=== PATIENT | male | born 1965 | race Caucasian/White ===

== ENCOUNTER 2024-11-19 09:39 | Outpatient (AMB) | payer OTHER, SELFPAY ==
--- NOTE | 2024-11-19 09:40 | MHC.OFFVIS ---
Intake Visit Reasons: Urothelial carcinoma of bladder Intake Note: Patient is present for UROTHELIAL,CARCINOMA OF BLADDER Urology Medication:NONE Antibiotic Allergy:NONE Blood Thinner:NONE Career Technical Education Instructor Required: No Allergies No Known Allergies Allergy (Verified 11/19/24 09:41) HPI Comments Details: Alessandro is a pleasant male. He is a patient of . He is seen for the following urologic conditions - superficial bladder cancer Requires check cystoscopy To be performed in December Has some degree of anxiety regarding office cystoscopy. Will give low-dose Valium. Superficial bladder cancer - low-grade August 2024 Initial diagnosis with TUR[facility] Reported as superficial low-grade solitary lesion Copy of pathology from [facility] to be obtained Review of Systems Const Denies chills and Denies fever(s) Card Reports no additional complaints and Denies syncope Resp Denies cough GI Denies abdominal pain and Denies heartburn Reports as per HPI and Denies change in libido Neuro Denies syncope Psych Denies change in libido Endo Denies change in libido Physical Exam Const General: cooperative, healthy appearing, comfortable and no acute distress Orientation/consciousness: patient oriented x3 HEENT Face and sinus: Yes normal facial exam Mouth: moist mucous membranes Neck Neck: Yes normal visual inspection, Yes full ROM and Yes trachea midline Chest Chest palpation & inspection: normal inspection of the chest Resp Effort & Inspection: normal respiratory effort, able to speak in complete sentences and no respiratory distress GI Inspection: Yes normal to inspection Back/Spine/Pelvis Cervical Spine: normal cervical lordosis Thoracic/Lumbar Spine: thoracic and lumbar spine normal to inspection Skin General skin exam: no rashes or lesions noted Neuro General: patient oriented x3, gait normal, tone normal and moves all extremities Extrem General: Yes normal to inspection and Yes capillary refill normal Results AMB Urinalysis, Automated UA Leukoctes 0 Miranda/uL Last Edit by KATHERINE Escobar on 11/19/24 09:56 UA Nitrite Negative Last Edit by KATHERINE Escobar on 11/19/24 09:56 UA Urobilinogen 0.2 mg/dL Last Edit by KATHERINE Escobar on 11/19/24 09:56 UA Protein 15 mg/dL Last Edit by KATHERINE Escobar on 11/19/24 09:56 UA pH 6.0 Last Edit by KATHERINE Escobar on 11/19/24 09:56 UA Blood 0 Eulogio/uL Last Edit by KATHERINE Escobar on 11/19/24 09:56 UA Specific [place] 1.015 Last Edit by KATHERINE Escobar on 11/19/24 09:56 UA Ketone Negative Last Edit by KATHERINE Escobar on 11/19/24 09:56 UA Bilirubin 0 mg/dL Last Edit by KATHERINE Escobar on 11/19/24 09:56 UA Glucose 0 mg/dL Last Edit by KATHERINE Escobar on 11/19/24 09:56 Results Reviewed Results Reviewed: Laboratory Last Values Urine pH (Auto) 6.0 11/19/24 09:55 Specific [place] (Auto) 1.015 11/19/24 09:55 Urine Protein (Auto) 15 mg/dL 11/19/24 09:55 Glucose (UA)(Auto) 0 mg/dL 11/19/24 09:55 Urine Ketones (Auto) Negative 11/19/24 09:55 Urine Blood (Auto) 0 Eulogio/uL 11/19/24 09:55 Urine Nitrite (Auto) Negative 11/19/24 09:55 Urine Bilirubin (Auto) 0 mg/dL 11/19/24 09:55 Urine Urobilinogen (Auto) 0.2 mg/dL 11/19/24 09:55 Leukocyte Esterase (Auto) 0 Miranda/uL 11/19/24 09:55 Assessment & Plan Assessment & Plan (1) Bladder cancer: Code(s): C67.9 - Malignant neoplasm of bladder, unspecified Category: Medical Plan Plan office cysto Orders: Orders AMB Urinalysis Automated 11/19/24 Z13.9 - Encounter for screening, unspecified Urine Cytology 11/19/24 N39.0 - Urinary tract infection, site not specified Medications: New diazepam Take medication after arrival at office 2 mg PO BID PRN 2 tabs 0RF anxiety 1 day C67.9 - Malignant neoplasm of bladder, unspecified, R45.89 - Other symptoms and signs involving emotional state Patient Instructions: This note is constructed using voice recognition software. While every effort has been made to ensure accuracy software systems architect errors may have been included. Imaging studies, laboratory and physical exam results were discussed and reviewed in detail. No major barriers to patient understanding were identified. An opportunity to ask questions regarding the treatment plan was provided. All questions were answered. The patient expressed understanding and agreement with the above treatment plan. The patient is aware they should contact our office by phone for worsening of their current condition or the appearance of new urologic symptoms. Compliance is encouraged with any medications and followup testing that is ordered. It is a privilege to participate in the urologic care of your patient. If you have any questions or concerns regarding treatment for the above conditions, or other urologic issues, please do not hesitate to contact me. The office telephone contact is [phone]. Sincerely, Dr Fan Park MD, [facility] - Urology Compassionate Specialist Care for the Genitourinary System Coding Level of Care Code New Pt Level 4 (99003) Diagnoses Bladder cancer C67.9
== END 2024-11-19 10:28 | disposition home or self-care (01) ==
LOC: HO.HUSH 09:39
PROVIDERS: PCP Family Medicine; Visit Provider Urology
DX: Z13.9 Encounter for screening, unspecified (principal)
CPT/HCPCS: 99204

== ENCOUNTER 2024-11-19 09:39 | Outpatient (REF) | payer OTHER, SELFPAY | END 2024-11-19 09:40 | disposition home or self-care (01) | LOC: HO.LAB 09:39 | PROVIDERS: PCP Family Medicine; Visit Provider Urology | DX: N39.0 Urinary tract infection, site not specified (principal) | CPT/HCPCS: 81003; 88112 ==

== ENCOUNTER 2025-01-27 08:40 | Outpatient (AMB) | payer OTHER, SELFPAY ==
--- NOTE | 2025-01-27 08:59 | MHC.OFFVIS ---
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 He is a patient of . He is seen for the following urologic conditions - superficial bladder cancer Office cystoscopy Has some degree of anxiety regarding office cystoscopy. Will give low-dose Valium. Superficial bladder cancer - low-grade August 2024 Initial diagnosis with [facility] Reported as superficial low-grade solitary lesion Cytology - 12/12 NAD Review of Systems Const Denies chills and Denies fever(s) Card Reports no additional complaints and Denies syncope Resp Denies cough GI Denies abdominal pain and Denies heartburn Reports as per HPI and Denies change in libido Neuro Denies syncope Psych Denies change in libido Endo Denies change in libido Physical Exam Const General: cooperative, healthy appearing, comfortable and no acute distress Orientation/consciousness: patient oriented x3 HEENT Face and sinus: Yes normal facial exam Mouth: moist mucous membranes Neck Neck: Yes normal visual inspection, Yes full ROM and Yes trachea midline Chest Chest palpation & inspection: normal inspection of the chest Resp Effort & Inspection: normal respiratory effort, able to speak in complete sentences and no respiratory distress GI Inspection: Yes normal to inspection Back/Spine/Pelvis Cervical Spine: normal cervical lordosis Thoracic/Lumbar Spine: thoracic and lumbar spine normal to inspection Skin General skin exam: no rashes or lesions noted Neuro General: patient oriented x3, gait normal, tone normal and moves all extremities Extrem General: Yes normal to inspection and Yes capillary refill normal Office Procedures Cystoscopy Consent Discussed risk and benefit or proposed procedure with the patient. Information consent for procedure given to the patient. Discussed technical aspects, risks, benefits and alternatives in full. Addressed all of the patient's questions and concerns regarding the procedure. The patient demonstrated knowledge and understanding. They wish to proceed with this procedure. Preparation The patient was prepped in the usual manner. A knobber was present and in the room. Genitalia was prepped with betadine solution in a sterile manner. Lidocaine Jelly 2% was placed into the urethra and 16Fr flexible Olympus cystoscope was inserted into the meatus after adequate lubrication. Procedure Cystoscopy performed using a disposable Quintiq digital 16 [place] cystoscope. Meatus circumcised Urethra anterior and posterior urethra normal Prostatic Urethra unremarkable - question of small area irritation left bladder neck Bladder examination with retroflexion of cystoscope Bladder Orifices normal shape and position Bladder Capacity Normal Trabeculations Grade 0 Cellule Formation None Diverticulum Formation None Mucosal Erythema None - trigonitis Bladder Tumor None [id number] DISPOSABLE SCOPE URO-G FLEXIBLE SCOPE Procedure code (CPT) selection complete Office Meds lidocaine HCl 2 % mucosal jelly in applicator Performing Provider: Fan Park MD Performing Location: [facility] Administered by: Nancy Hemphill RN on 01/27/25 09:28 Dose Route Admin Location Dispensed Lot Number Expiration Date NDC [employer] Liaison Officer 10 mL intra-urethral 10 mL nitrofurantoin monohydrate/macrocrystals 100 mg capsule Performing Provider: Fan Park MD Performing Location: [facility] Administered by: Nancy Hemphill RN on 01/27/25 09:28 Dose Route Admin Location Dispensed Lot Number Expiration Date ND [employer]ia[employer] 100 mg PO 1 cap Results AMB Urinalysis, Automated UA Leukoctes 0 Miranda/uL Last Edit by KATHERINE Hall on 01/27/25 09:13 UA Nitrite Negative Last Edit by KATHERINE Hall on 01/27/25 09:13 UA Urobilinogen 0.2 mg/dL Last Edit by KATHERINE Hall on 01/27/25 09:13 UA Protein 0 mg/dL Last Edit by KATHERINE Hall on 01/27/25 09:13 UA pH 6.0 Last Edit by KATHERINE Hall on 01/27/25 09:13 UA Blood 0 Eulogio/uL Last Edit by KATHERINE Hall on 01/27/25 09:13 UA Specific [place] 1.015 Last Edit by KATHERINE Hall on 01/27/25 09:13 UA Ketone Negative Last Edit by KATHERINE Hall on 01/27/25 09:13 UA Bilirubin 0 mg/dL Last Edit by KATHERINE Hall on 01/27/25 09:13 UA Glucose 0 mg/dL Last Edit by KATHERINE Hall on 01/27/25 09:13 Results Reviewed Results Reviewed: Laboratory Last Values Urine pH (Auto) 6.0 01/27/25 09:12 Specific [place] (Auto) 1.015 01/27/25 09:12 Urine Protein (Auto) 0 mg/dL 01/27/25 09:12 Glucose (UA)(Auto) 0 mg/dL 01/27/25 09:12 Urine Ketones (Auto) Negative 01/27/25 09:12 Urine Blood (Auto) 0 Eulogio/uL 01/27/25 09:12 Urine Nitrite (Auto) Negative 01/27/25 09:12 Urine Bilirubin (Auto) 0 mg/dL 01/27/25 09:12 Urine Urobilinogen (Auto) 0.2 mg/dL 01/27/25 09:12 Leukocyte Esterase (Auto) 0 Miranda/uL 01/27/25 09:12 Assessment & Plan Assessment & Plan (1) Bladder cancer: Code(s): C67.9 - Malignant neoplasm of bladder, unspecified Category: Medical Plan Six-month follow-up cystoscopy Orders: Orders AMB Urinalysis Automated Today Z13.9 - Encounter for screening, unspecified AMB Cystoscopy Today C67.9 - Malignant neoplasm of bladder, unspecified Patient Instructions: This note is constructed using voice recognition software. While every effort has been made to ensure accuracy artillery or naval gunfire observer errors may have been included. Imaging studies, laboratory and physical exam results were discussed and reviewed in detail. No major barriers to patient understanding were identified. An opportunity to ask questions regarding the treatment plan was provided. All questions were answered. The patient expressed understanding and agreement with the above treatment plan. The patient is aware they should contact our office by phone for worsening of their current condition or the appearance of new urologic symptoms. Compliance is encouraged with any medications and followup testing that is ordered. It is a privilege to participate in the urologic care of your patient. If you have any questions or concerns regarding treatment for the above conditions, or other urologic issues, please do not hesitate to contact me. The office telephone contact is [phone]. Sincerely, Dr Fan Park MD, [facility] - Urology Compassionate Specialist Care for the Genitourinary System Coding Level of Care Code Est Pt Level 3 (56350) Complex EM visit Add On G2211 Diagnoses Bladder cancer C67.9 CPT Codes Cystoscopy - CPT: 44758-[id number] ([id number])
--- OUTSIDE RECORDS SUMMARY | 2025-01-27 09:49 | XMS_ITS | Clinical Summary ---
Author Organization [facility] Address [address] [place] [id number] Phone Care Team Providers Care Associate Software Engineer Name Role Phone Sergio Dyer DO Primary Care Provider Allergies No known active allergies Medications omega 1-qvd-nve-fish oil 1,000 mg (120 mg-180 mg) Cap Take 1 capsule by mouth daily. Active acetaminophen (TYLENOL) 325 mg tablet Take 2 tablets (650 mg total) by mouth every 4 (four) hours as needed for pain (specific location in comments). 24 tablet 09/03/2024 Active lidocaine 4 % Place 1 patch onto the skin daily. 10 patch 09/04/2024 Active Active Problems Problem Noted Date Diagnosed Date DDD (degenerative disc disease), lumbar 09/12/19 25 Assessment & Plan (09/11/2024 10:20 AM EDT): Alessandro has low back pain-ongoing. The pain radiates down into the legs at times. I referred him to Dr. Judge for a consult and I gave him some exercises the front to start on. I informed him to call if there are any other issues or concerns if this gets worse. Follow-up in 2 months. He understands and agrees. Urothelial carcinoma of bladder 09/03/2024 Assessment & Plan (11/10/2024 9:34 AM EDT): Alessandro has an appointment with a new urologist at [place] for the bladder mass. He currently denies any dysuria or blood in the urine but is having more urgency at times. He did not have a bladder scan yet but will have this worked up through [place]. I informed him to call if any other issues or concerns. He understands and agrees. Assessment & Plan (09/11/2024 10:19 AM EDT): Alessandro presents for follow-up regarding his urothelial carcinoma of the bladder. He was admitted to [facility] on 09/01/[address] Reed who performed a cystoscopy and biopsy/stenting. He was discharged on 09/03/2024. The catheter and stent were removed this past Sunday-09/08/2024. I reviewed the pathology report with him and I advised him to follow-up with his urologist-he will see the urologist on 09/19/2024. Currently no dysuria and no hematuria. This is reassuring. He will call if there are any other issues or concerns. He understands and agrees. Elevated white blood cell count 09/02/2024 Overview (09/02/2024): Pt noted to have Leukocytosis at 16.88 on morning labs. Pt afebrile. EKG taken this morning. Trops and procal added to morning labs -likely d/t inflammatory response Bladder neoplasm of uncertain malignant potentia l 09/01/2024 Assessment & Plan (11/10/2024 9:35 AM EDT): Alessandro has an appointment with a new urologist in [place]. Assessment & Plan (09/03/2024 10:26 AM EDT): Patient is a 59-year-old male with a past medical history positive for arthritis and a recent ED visit for sudden painless hematuria (07/2024). Patient is day #1 s/p planned transurethral resection of bladder tumor (TURBT). A right ureteral stent and Jeffrey was placed. -He was initially admitted for postanesthesia observation due to lack of help at home. DC was delayed d/t concerns for ETOH withdrawal -Sufficient jeffrey output. Draining clear and pink, no clots Plan: -DC Pt with jeffrey to gravity -Per urology note Pt is to follow-up outpatient in 1 week for office cystoscopy and removal of Jeffrey as well as removal of right ureteral stent Assessment & Plan (09/02/2024 10:43 AM EDT): Patient is a 59-year-old male with a past medical history positive for arthritis and a recent ED visit for sudden painless hematuria (07/2024). Patient presented today for planned transurethral resection of bladder tumor. -In the OR a right ureteral stent and Jeffrey was placed. -He was admitted for postanesthesia observation due to lack of help at home -Jeffrey output more than 800mL since placement. Urine now clear and pink -Pt with new leukocytosis on morning labs. He is afebrile. This is likely d/t inflammatory response. Pt was ordered Ancef pre and post op, he has one more dose to go Plan: -DC Pt with jeffrey to gravity -Per urology note Pt is to follow-up outpatient in 1 week for office cystoscopy and removal of Jeffrey as well as removal of right ureteral stent Assessment & Plan (09/01/2024 2:35 PM EDT): Patient is a 59-year-old male with a past medical history positive for arthritis and a recent ED visit for sudden painless hematuria (07/2024). Patient presented today for planned transurethral resection of bladder tumor. -In the or a right ureteral stent and Jeffrey was placed. -He is being admitted for postanesthesia observation due to lack of help at home -Per urology note plan is for follow-up outpatient in 1 week for removal of Jeffrey and right ureteral stent as well as office cystoscopy -Labs: CBC, CMP -cont IVF -jeffrey to gravity Disorder of ureter 09/01/2024 Bladder tumor 09/01/2024 Bradycardia 09/01/2024 Assessment & Plan (09/03/2024 10:26 AM EDT): -pt was noted to be bradycardic pre-op in 50s. He was asymptomatic post-op. Denies known cardiac hx and denies known family cardiac hx - Today he denies dizziness and nausea -pt hypertensive with SBP 140s-160s. Troponin (-) x2, procal WNL. Concern for acute cardiac even is low at this time -EKG reviewed. T-wave inversions in leads V1, V3 and II. No acute ischemic changes. No previous EKG for comparison -No cardiac events on monitor. Heart rate 50s to 80s. Sinus bradycardia to normal sinus rhythm Plan: -OutPt Cardiology referral ordered Assessment & Plan (09/02/2024 10:43 AM EDT): -pt was noted to be bradycardic pre-op in 50s. He was asymptomatic post-op. Denies known cardiac hx and denies known family cardiac hx -this morning he reports occasional dizziness with standing that he associates with abt administration -pt hypertensive. Troponin (-) x2, procal WNL. Concern for acute cardiac even is low at this time -EKG reviewed. T-wave inversions in leads V1, V3 and II. No acute ischemic changes. No previous EKG for comparison -No cardiac evens on monitor. Now sinus rhythm Plan: -OutPt Cardiology referral ordered Assessment & Plan (09/01/2024 2:11 PM EDT): -pt asymptomatic. Denies hx -May be d/t anesthesia. Not likely d/t hypovolemia -manager express -EKG -IVF -Vitals Hypertension 09/01/2024 Assessment & Plan (11/10/2024 9:34 AM EDT): Alessandro presents for blood pressure check. Currently within normal limits and stable blood pressure today in the office. He is not taking a blood pressure medication. Assessment & Plan (09/11/2024 10:14 AM EDT): Normal B/P without medication. He is undergoing lifestyle improvement. Assessment & Plan (09/03/2024 10:26 AM EDT): -Pt with no hx or family medical hx of HTN. Noted to be slightly hypertensive pre-op with SBP 140s -SBP 140s-160s, -CIWA 0-1 -Currently daily ETOH Drinker. He reports about #3 beers or glasses of wine daily, last drink was the night before surgery/admission (approx #3 days ago) -recent EKG with T wave abnormalities -Trop (-) x2. procal WNL. Concern for acute cardiac even is low at this time Plan: -OutPt Cardiology referral ordered Assessment & Plan (09/02/2024 10:43 AM EDT): -Pt with no hx or family medical hx of HTN. Noted to be slightly hypertensive pre-op with SBP 140s -Overnight SBP as high as 180s, his CIWA around that time was 12. He was given ativan with positive effect. Last SBP in 160s -Pt reports daily ETOH use. He reports about #3 beers or glasses of wine daily, last drink was the night before surgery/admission (approx #2 days ago) -EKG this morning with T wave abnormalities -Trop (-) x2. procal WNL. Concern for acute cardiac even is low at this time Plan: -OutPt Cardiology referral ordered Assessment & Plan (09/01/2024 2:11 PM EDT): Pt with no hx of HTN -Pt reports daily ETOH use. He reports about #3 beers or glasses of wine daily, last drink last night -IVF ordered -CIWA -Vitals Alcohol use 09/01/2024 Assessment & Plan (11/10/2024 9:34 AM EDT): Alessandro decrease his alcohol intake and he notes that he has been feeling better. I congratulated him on this. Assessment & Plan (09/03/2024 10:26 AM EDT): Patient reported drinking about #3 beers or glasses of wine daily. Last drink the night before surgery/admission (approx #3 days ago) -CIWA 0-1. -cont to be hypertensive with SBP 140s-160s. Plan: -Pt again counseled on ETOH cessation and the importance of outpatient cardiology follow-up -cont folate, MTV, thiamine Assessment & Plan (09/02/2024 10:43 AM EDT): Patient reported drinking about #3 beers or glasses of wine daily. Last drink the night before surgery/admission (approx #2 days ago) -Overnight CIWA score as high as 12. He was also noted to be hypertensive with SBP in 180s. He was given ativan 1mg x1 Plan: -Pt counseled on ETOH cessation Assessment & Plan (09/01/2024 2:11 PM EDT): Patient reports drinking about #3 beers or glasses of wine daily -CIWA Arthritis 06/06/2024 Assessment & Plan (06/06/2024 4:03 PM EST): Alessandro has arthritis in his shoulders and hands-I filled out FMLA paperwork today. I scanned this into his chart. He will call if there are any other issues or concerns. He understands and agrees. Shoulder pain, bilateral 06/06/2024 Assessment & Plan (06/06/2024 4:04 PM EST): Chronic pain in the xhxunkhtq-knoudauzt-B filled out paperwork today for this. I gave him exercises for this at the front office specialist. Pain in both hands 06/06/2024 Assessment & Plan (06/06/2024 4:04 PM EST): Chronic pain in the syrqu-emrimzzia-D filled out paperwork today for this. I gave him exercises at the front office specialist for this. Encounter for completion of form with patient Assessment & Plan (11/10/2024 9:34 AM EDT): I filled out FMLA paperwork today in the office for-this was scanned into the chart. He was appreciative. Assessment & Plan (06/06/2024 4:04 PM EST): I filled out FMLA paperwork for Alessandro today. This will be scanned into his chart. Bilateral osteoarthritis of finger 05/24/2023 Overview (10/17/2023): DIPs; no psoriasis hx Assessment & Plan (10/17/2023 4:50 PM EDT): There is no specific historical, physical, radiographic, or serologic e/o underlying or co-morbid rheumatoid or other inflammatory arthritis. Patient is currently minimally symptomatic despite degree of DIP OA. We discussed typical prognosis and tx options for finger OA, including continued oral NSAIDs as needed, topical analgesics, and hot paraffin baths. He is aware that there is nothing proven to prevent disease progression but that typically people will ultimately plateau. He will contact me if sxs progress in severity to the point that he requires further rheum-specific guidance. Assessment & Plan (05/24/2023 4:13 PM EST): Alessandro has worsening arthritic joints of the hands-specifically DIP joints-there deformed. He is taking his hcznlvmxee-tbci-qyo-counter as needed. I offered sulindac versus diclofenac but he declines this. He will call if he would like a trial of this medication. I ordered labs today to rule out rheumatoid arthritis and I put a referral to rheumatology for consult. To note-rheumatoid arthritis runs in his family. He was appreciative. He will call if there are any other issues or concerns. He understands and agrees. Screening for lung cancer 05/23/2022 Assessment & Plan (05/23/2022 4:51 PM EST): Alessandro is due for a low-dose CT scan. I ordered this today and he will get it from her office. I will update him with results. He understands and agrees. Screening for prostate cancer 05/18/2021 Assessment & Plan (05/26/2024 11:50 AM EST): Alessandro is due for blood work-he will get this done and I will update him with the result. Assessment & Plan (05/24/2023 4:14 PM EST): Alessandro is due for blood work-he will get this done and I will update him with the result. Assessment & Plan (05/18/2021 4:27 PM EST): Alessandro is due for a PSA and he will get this done-I will update him with the results. Fingernail abnormalities 05/12/2020 Finger mass, right 05/12/2020 Assessment & Plan (05/18/2021 4:26 PM EST): Alessandro rodriguez have issues with ganglion cyst on his hands. I referred him back to orthopedics in [place] for consult. He was appreciative. I informed him that he will get a phone call for this. Assessment & Plan (05/12/2020 5:13 PM EST): Referral to Dr. Lombardi for a consult regarding his right ring finger. Suspected ganglion cyst. He will call for the appt. Routine medical exam 08/28/2018 Assessment & Plan (05/26/2024 11:50 AM EST): Alessandro Traore is a 58 y.o. year old male presenting for his annual physical exam. I reviewed the adult health update-electronic questionnaire. he will go for his above lab work and I will update him with the results. Guidance to improve his diet and exercise regimen. He declined a colonoscopy even though I recommended this. He is agreeable to a repeat fit test-I will update him with the results. he will follow up in a year for their annual physical exam. he understands and agrees. Assessment & Plan (05/24/2023 4:14 PM EST): Alessandro Traore is a 57 y.o. year old male presenting for his annual physical exam. I reviewed the adult health update-electronic questionnaire. he will go for his above lab work and I will update him with the results. I gave him guidance to improve his diet and exercise regimen. he will follow up in a year for their annual physical exam. he understands and agrees. Assessment & Plan (05/23/2022 4:51 PM EST): Alessandro Traore is a 56 y.o. year old male presenting for his annual physical exam. I reviewed the adult health update-electronic questionnaire. he will go for his above lab work and I will update him with the results. I advised him to improve his diet and exercise regimen. He declined a colonoscopy but was agreeable to a fit test. I ordered this today and I will update him with results. he will follow up in a year for their annual physical exam. he understands and agrees. Assessment & Plan (05/18/2021 4:27 PM EST): Alessandro Traore is a 55 y.o. year old male presenting for his annual physical exam. I reviewed the adult health update questionnaire. he will go for his above lab work and I will update him with the results. Advised him to improve his diet and exercise regimen. he will follow up in a year for their annual physical exam. he understand and agrees. Assessment & Plan (05/12/2020 5:15 PM EST): Alessandro Traore is a 54 y.o. year old male presenting for his annual physical exam. I reviewed the adult health update form today. he will go for his above lab work and I will update him with the results. I advised him to improve his diet and exercise regimen. he will follow up in a year for their annual physical exam. he understand and agrees. Assessment & Plan (08/28/2018 4:24 PM EDT): Alessandro Traore is a 53 y.o. year old male presenting for his annual physical exam. I reviewed the adult health update form today. I reviewed his most recently lab work-WNL (from 08/19/18). he was advised to improve his diet and exercise regimen. he will follow up in a year for their annual physical exam. he understand and agrees. Tinea pedis of both feet 08/28/2018 Assessment & Plan (08/28/2018 4:13 PM EDT): Alessandro was diagnosed with tinea pedis and he was given the above cream, to be used as directed. He will soak his feet in epsom salts as well. He will call if there is any other issues. He understands and agrees. Class 1 obesity due to exces s calories without serious comorbidity with body mass index (BMI) of 32.0 to 32.9 in adult 05/01/2018 Assessment & Plan (09/11/2024 10:14 AM EDT): Guidance given to improve diet and exercise. Assessment & Plan (05/26/2024 11:49 AM EST): Alessandro has a BMI of 33.8-I gave guidance to improve lifestyle-diet and exercise. Repeat lab work this July. I will update him with the results. He understands and agrees. Assessment & Plan (05/23/2022 4:41 PM EST): Reviewed, he has a BMI of 32. Guidance given regarding improving diet and exercise. Assessment & Plan (05/01/2018 3:52 PM EST): Alessandro is overweight and he was advised to improve his diet and exercise regimen. F/U for CPE in 3 months. Colon cancer screening 05/01/2018 Assessment & Plan (08/28/2018 4:17 PM EDT): He declines a colonoscopy-he is agreeable to a FIT test. This was given today. Assessment & Plan (05/01/2018 3:52 PM EST): He declines a colonoscopy but is agreeable to a FIT test. Given today. Encounters Date Type Department Care Team Description 11/10/2024 9:15 AM EDT Office Visit [facility] [address] [place] [address] Sergio Dyer, Primary hypertension (Primary Dx); Urothelial carcinoma of bladder; Encounter for completion of form with patient; Alcohol use; Bladder neoplasm of uncertain malignant potential from Last 3 Months Immunizations Immunization Administration Dates Next Due Tdap 08/28/2018 Family History Medical History Relation Comments Alcohol abuse Father Throat cancer Father Relation Status Comments Father (Age 56) Maternal Grandfather Maternal Grandmother Mother Paternal Grandfather Paternal Grandmother Social History Tobacco Use Types Packs/Day Years Used Date Smoking Tobacco: Former Cigarettes 1 23.1 0 01/10/1985 - 03/03/2008 Smokeless Tobacco: Never Tobacco Cessation:Counseling Given: Not Answered Alcohol Use Standard Drinks/Week Comments Yes 3 (1 standard drink = 0.6 oz pur e alcohol) 3 drinks a day, usually beer Child or Family Care Answer Date Record ed Do you have problems with on e of the following making it difficult for you to work, study, or receive health care? No 05/26/2024 Education Answer Date Recorded Are you interested in help w ith more adult education (for example, completing high school, GED, job training, learning the Wol[place] language, technical skills, or developing parenting skills)? No 05/26/2024 Are you concerned about learning? Not on file 05/26/2024 No 05/26/2024 Yes 05/26/2024 Food Answer Date Recorded Within the past 6 months we worried whether our food would run out before we got money to buy more. Never True 09/01/2024 Within the past 6 months the food we bought just didn't last and we didn't have enough money to get more. Never True Residential Stability Answer Date Recor ded What is your housing situation today? I have harini sing 09/01/2024 How many times have you move d in the past 12 months? Zero (I did not move) 09/01/2024 Paying for Meds Answer Date Recorded Do you have trouble paying for medicines? No 09/01/2024 Paying Utility Bills Answer Date Record ed Do you have trouble paying your heating or elect ricity bill? No 09/01/2024 Transportation Answer Date Recorded Has the lack of transportati on kept you from medical appointments or from getting medications? No 09/01/2024 Unemployment Answer Date Recorded Are you currently unemployed or working on a part-time or temporary basis, and looking for work? No 05/18/2021 Digital Access Answer Date Recorded No 09/01/2024 Yes 09/01/2024 Do you have reliable internet access at home? Ye s 09/01/2024 Do you have a device (e.g., phone, tablet, computer) with a working camera? Yes 09/01/2024 Intimate Partner Violence Answer Date R ecorded Are you denied basic needs s uch as food, clothing, or medical care? No 09/01/2024 In the past 12 months have y ou been in a relationship with a person who hurts, threatens, or tries to control you? No 09/01/2024 Are you denied basic needs s uch as food, clothing, or medical care? No 09/01/2024 In the past 12 months have y ou been in a relationship with a person who hurts, threatens, or tries to control you? 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 Not on file Not on file Last Filed Vital Signs Vital Sign Reading Time Taken Comments Blood Pressure 128/78 11/10/2024 9:06 AM EDT Pulse 62 11/10/2024 9:06 AM EDT Temperature 36.6 C (97.9 F) 11/10/2024 9:06 AM EDT Respiratory Rate 16 09/03/2024 11:43 AM EDT Oxygen Saturation 98% 11/10/2024 9:06 AM EDT Inhaled Oxygen Concentration - - Weight 100 kg (220 lb 6.4 oz) 11/10/2024 9:06 AM EDT Height 177.8 cm (5' 10 ) 11/10/2024 9:06 AM EDT Body Mass Index 31.62 11/10/2024 9:06 AM EDT Plan of Treatment Upcoming Encounters Date Type Department Care Team (Late st Contact Info) Description 06/01/2025 11:30 AM EST Office Visit [facility] [address] [place] [address] Sergio Dyer, DO [address] [facility], [address] [place] [address] [email or web address] Health Maintenance Due Date Last Done Comments ZOSTER VACCINES (1 of 2) 1985 COLOGUARD 2011 COLONOSCOPY 2011 FOBT 2011 SIGMOIDOSCOPY 2011 VIRTUAL COLONOSCOPY 2011 INFLUENZA VACCINE (#1) 2024 COVID-19 VACCINE (2 - season) 2025 02/03/2021 CREATININE LEVEL 03/04/2025 09/02/2024, , 08/25/2024, Additional history exists POTASSIUM LEVEL 03/04/2025 09/02/2024, 08/19, 08/25/2024, Additional history exists PNEUMOCOCCAL VACCINES (50+ years) (1 of 2 - PCV) 04/20/2025 Postponed from 1985 (Patient Declines / Guardian Declines) BLOOD PRESSURE 05/12/2025 11/10/2024 DEPRESSION SCREENING 05/26/2025 05/26/2024, 05/18/20 21 COLORECTAL CANCER SCREENING 08/25/2025 FIT TEST 08/25/2025 08/25/2024, 07/19, 04/27/2021 LIPID PANEL 08/25/2025 08/25/2024, 07/19, 05/11/2022, Additional history exists SCREENING FOR DIABETES 09/02/2027 09/01/2024 Adult Td,Tdap Booster 08/28/2028 08/28/2018 HEPATITIS C SCREENING Completed 08/19/2018 HIV ONE-TIME SCREENING (18-65 YEARS) Completed 04/25/2021 SMOKING STATUS SCREENING (Once After 26 Yrs) Completed 11/10/2024 HEPATITIS A VACCINES Aged Out No long er eligible based on patient's age to complete this topic HIB VACCINES Aged Out No longer eligi ble based on patient's age to complete this topic MENINGOCOCCAL VACCINES (ACWY) Aged Out No longer eligible based on patient's age to complete this topic MENINGOCOCCAL VACCINES (B) Aged Out N o longer eligible based on patient's age to complete this topic Medical Devices Implanted Type Area Egg Processor Device Identifier Shelf Expiration Date Model / Serial / Lot Stent Ureteral 6fr 22 To 30cm Stretch Coated Eliu - [id number] Implanted:Qty: 1 on 09/01/2024 by Ruben Reed MD at [facility] Right: Ureter [employer] MARCELINO 11/27/2026 [id number] / / [id number] Procedures Procedure Name Priority Date/Time Associated Diagnosis Comments COMPREHENSIVE METABOLIC PANEL Routine 09/02/2024 4:38 AM EDT HC BLOOD OCCULT FECAL HGB DETER IA QUAL FECES 1-3 Routine 08/25/2024 9:09 AM EDT Routine medical exam LIPID PANEL Routine 08/25/2024 9:07 AM EDT Routine medical exam HEPATITIS C ANTIBODY, QUALITATIVE Routine 08/19/2018 2:51 PM EDT Laboratory examination ordered as part of a routine general medical examination from Last 3 Months or Most Recently Relevant to Health Maintenance Results * (ABNORMAL) Comprehensive metabolic panel (09/02/2024 4:38 AM EDT) SODIUM 136 133 - 146 mmol/L [facility] POTASSIUM 4.2 3.3 - 5.1 mmol/L [facility] CHLORIDE 102 96 - 108 mmol/L [facility] CO2 24 21 - 35 mmol/L [facility] BUN 14 6 - 19 mg/dL [facility] CREATININE 0.70 0.5 - 1.5 mg/dL [facility] GLUCOSE 137(H) 70 - 99 mg/dL [facility] ALBUMIN 3.8(L) 3.9 - 4.8 g/dL [facility] TOTAL PROTEIN 6.6 6.5 - 8.0 g/dL [facility] CALCIUM 8.9 8.4 - 10.3 mg/dL [facility] ALKALINE PHOSPHATASE 58 39 - 117 U/L [facility] TOTAL BILIRUBIN 0.3 0.0 - 1.2 mg/dL [facility] AST 16 0 - 37 U/L [facility] ALT 21 0 - 40 U/L [facility] GLOBULIN 2.8 1 - 4.8 g/dL [facility] EGFR 107 >59 mL/min/1.7 3m2 [facility] Comment:Estimated glomerular filtration rate calculated using the CKD-EPI refit equation. ANION GAP 14 10 - 20 mmol/L [facility] Blood 09/02/2024 4:38 AM EDT 09/02/2024 5:11 AM EDT Priscilla Winters [facility] BLOOD ORDERABLES Final Res ult [facility] [address] [place] [address] * Fecal immunochemical test x1 (FIT) (08/25/2024 9:09 AM EDT) Immuno Fecal Occult Negative Negative [facility] Stool (Stool) 08/25/2024 9:0 9 AM EDT 08/25/2024 9:11 AM EDT Sergio Dyer DO BODY FLUIDS AND STOOLS ORDERABLE S Final Result Performing Organization Address [facility] de Phone Number [address] [address] * (ABNORMAL) Lipid panel (08/25/2024 9:07 AM EDT) HDL 41 mg/dL [facility] Comment: Interpretation <40 mg/dL: Low HDL cholesterol (major risk factor for CHD) Greater than or equal to 60 mg/dL: High HDL cholesterol ( negative risk factor for CHD) HDL - cholesterol is affected by a number of factors, e.g. smoking, excerise, hormones, sex and age. CHOLESTEROL 174 0 - 240 mg/dL [facility] TRIGLYCERIDES 291(H) 30 - 160 mg/dL [facility] LDL 75 50 - 129 mg/dL [facility] Comment: LDL levels in terms of risk for coronary heart disease: <100 mg/dL: Optimal 100-129 mg/dL: Near or above optimal 130-159 mg/dL: Borderline high 160-189 mg/dL: High >190 mg/dL: Very High CARDIAC RISK RATIO 4.2 3.4 - 5.0 C [facility] Blood 08/25/2024 9:07 AM EDT 08/25/2024 9:11 AM EDT Sergio Dyer DO LAB BLOOD ORDERABLES Final Resul t Performing Organization Address [facility] de Phone Number [address] [address] * Hepatitis C antibody, qualitative (08/19/2018 2:51 PM EDT) HCV Negative Negative [facility] Comment: This is a screening test and should be confirmed with molecular testing Blood 08/19/2018 2:51 PM EDT 08/19/2018 2:55 PM EDT Sergio Dyer DO LAB BLOOD ORDERABLES Final Resul t Performing Organization Address [facility] de Phone Number [facility] [address] [place] [address] from Last 3 Months or Most Recently Relevant to Health Maintenance Insurance HMO [address] [place], [place] [address]O Advance Directives For more information, please contact: [phone] (9AM - 5PM [place], Sunday-Sunday) * Full Code (Latest Code Status on File) Date Activated Date Inactivated Comments 09/01/2024 2:21 PM Question Answer Comments Code Status Confirmed With: Patient * Full Code Date Activated Date Inactivated Comments 09/01/2024 2:19 PM 09/01/2024 2:21 PM Question Answer Comments Code Status Confirmed With: Patient Care Teams Associate Software Engineer Relationship Specialty Start Date End Date Sergio Dyer DO [address] [place] [address] [email or web address] PCP - General Family Medicine 08/21/19 Additional Source Comments The information contained in this document represents components of the legal health record. It is not the complete legal health record.[facility]
--- OUTSIDE RECORDS SUMMARY | 2025-01-27 09:49 | XMS_ITS | Encounter Summary ---
Author Organization [facility] Address [address] [place] [address] Phone Care Team Providers Care Cyber Engineer Name Role Phone Manisha Sergio Jiang DO Primary Care Provider [phone] Encounter Details Date Type Department Care Team (Late st Contact Info) Description 08/01/2024 Procedure Pass [facility], Ct Scan - [facility] [address] [place] [address] Social History Tobacco Use Types Packs/Day Years Used Date Smoking Tobacco: Former Cigarettes 1 23.1 0 01/10/1985 - 03/03/2008 Smokeless Tobacco: Never Alcohol Use Standard Drinks/Week Comments Yes 0 (1 standard drink = 0.6 oz pure alcohol) 2 drinks a day- four times a week, usually beer Child or Family Care Answer Date Record ed Do you have problems with on e of the following making it difficult for you to work, study, or receive health care? No 05/26/2024 Education Answer Date Recorded Are you interested in help w ith more adult education (for example, completing high school, GED, job training, learning the Turkish language, technical skills, or developing parenting skills)? No 05/26/2024 Are you concerned about learning? Not on file 05/26/2024 No 05/26/2024 Yes 05/26/2024 Food Answer Date Recorded Within the past 6 months we worried whether our food would run out before we got money to buy more. Never True 05/26/2024 Within the past 6 months the food we bought just didn't last and we didn't have enough money to get more. Never True Residential Stability Answer Date Recor ded What is your housing situation today? I have harini miner 05/26/2024 How many times have you move d in the past 12 months? Zero (I did not move) 05/26/2024 Paying for Meds Answer Date Recorded Do you have trouble paying for medicines? No 05/26/2024 Paying Utility Bills Answer Date Record ed Do you have trouble paying your heating or elect ricity bill? No 05/26/2024 Transportation Answer Date Recorded Has the lack of transportati on kept you from medical appointments or from getting medications? No 05/26/2024 Unemployment Answer Date Recorded Are you currently unemployed or working on a part-time or temporary basis, and looking for work? No 05/18/2021 Digital Access Answer Date Recorded No 05/26/2024 Yes 05/26/2024 Do you have reliable internet access at home? Ye s 05/26/2024 Do you have a device (e.g., phone, tablet, computer) with a working camera? Yes 05/26/2024 Intimate Partner Violence Answer Date R ecorded Are you denied basic needs s uch as food, clothing, or medical care? No 08/01/2024 In the past 12 months have y ou been in a relationship with a person who hurts, threatens, or tries to control you? No 08/01/2024 Are you denied basic needs s uch as food, clothing, or medical care? No 08/01/2024 In the past 12 months have y ou been in a relationship with a person who hurts, threatens, or tries to control you? 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 Wish to be (Past 1 Month) No 025 4:30 PM EDT Kvng, Leesa, RN 2. Non-Specific Active Suici clara Thoughts (Past 1 Month) No 08/01/2024 4:30 PM EDT Leesa Calderon , RN 6. Suicidal Behavior (Lifetime) No 4:30 PM EDT Leesa Calderon, RN documented as of this encounter Plan of Treatment Upcoming Encounters Date Type Department Care Team (Late st Contact Info) Description 06/01/2025 11:30 AM EST Office Visit [facility] [address] [place] [address] Sergio Dyer DO [address] [address] [email or web address] documented as of this encounter Visit Diagnoses Not on filedocumented in this encounter Additional Health Concerns Assessment Noted Time PHQ-9 Depression Total Score: 14 021 4:03 PM EST PHQ-2 Depression Total Score: 2 05/26/19 25 10:56 AM EST documented as of this encounter Care Teams Cyber Engineer Relationship Specialty Start Date End Date Sergio Dyer DO [address] [address] [email or web address] PCP - General Family Medicine 08/21/19 documented as of this encounter Additional Source Comments The information contained in this document represents components of the legal health record. It is not the complete legal health record.[facility]
--- OUTSIDE RECORDS SUMMARY | 2025-01-27 09:49 | XMS_ITS | Encounter Summary ---
Author Organization [facility] Address [address] [place] [address] Phone Care Team Providers Care Sales Account Executive Name Role Phone Manisha Sergio Jiang DO Primary Care Provider [phone] Encounter Details Date Type Department Care Team (Late st Contact Info) Description 05/23/2022 Procedure Pass [facility], Ct Scan - [facility] [address] [place] [address] Social History Tobacco Use Types Packs/Day Years Used Date Smoking Tobacco: Former Cigarettes 1 23.1 0 01/10/1985 - 03/03/2008 Smokeless Tobacco: Never Alcohol Use Standard Drinks/Week Comments Yes 0 (1 standard drink = 0.6 oz pure alcohol) 6 times a week a couple of drinks - beers Child or Family Care Answer Date Record ed Do you have problems with on e of the following making it difficult for you to work, study, or receive health care? Yes 05/18/2021 Education Answer Date Recorded Are you interested in help w ith more adult education (for example, completing high school, GED, job training, learning the Hebrew language, technical skills, or developing parenting skills)? No 05/18/2021 Food Answer Date Recorded Within the past 6 months we worried whether our food would run out before we got money to buy more. Never True 05/18/2021 Within the past 6 months the food we bought just didn't last and we didn't have enough money to get more. Never True Residential Stability Answer Date Recor ded What is your housing situation today? I have harini sing 05/18/2021 How many times have you move d in the past 12 months? Zero (I did not move) 05/18/2021 06 Are you worried that in t he next 2 months, you may not have your own housing to live in? No 05/18/2021 Paying for Meds Answer Date Recorded Do you have trouble paying for medicines? No 05/18/2021 Paying Utility Bills Answer Date Record ed Do you have trouble paying your heating or elect ricity bill? No 05/18/2021 Transportation Answer Date Recorded Has the lack of transportati on kept you from medical appointments or from getting medications? No 05/18/2021 Unemployment Answer Date Recorded Are you currently unemployed or working on a part-time or temporary basis, and looking for work? 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 Not on file documented as of this encounter Plan of Treatment Upcoming Encounters Date Type Department Care Team (Late st Contact Info) Description 06/01/2025 11:30 AM EST Office Visit [facility] Medicine [address] [place] [address] Sergio Dyer DO [address] [address] [email or web address] documented as of this encounter Visit Diagnoses Not on filedocumented in this encounter Additional Health Concerns Assessment Noted Time PHQ-9 Depression Total Score: 14 021 4:03 PM EST PHQ-2 Depression Total Score: 2 05/23/19 23 4:39 PM EST documented as of this encounter Care Teams Sales Account Executive Relationship Specialty Start Date End Date Sergio Dyer DO 234 [facility] [address] [place] [address] [email or web address] PCP - General Family Medicine 08/21/19 documented as of this encounter Additional Source Comments The information contained in this document represents components of the legal health record. It is not the complete legal health record.[facility]
--- OUTSIDE RECORDS SUMMARY | 2025-01-27 09:49 | XMS_ITS | Encounter Summary ---
Author Organization [facility] Address [address] [place] [address] Phone Care Team Providers Care Porcelain Buildup Assistant Name Role Phone Manisha Sergio Jiang DO Primary Care Provider [phone] Encounter Details Date Type Department Care Team (Late st Contact Info) Description 09/01/2024 Procedure Pass [place] Admitting Dept - Virtual Department [address] [place] [address] Social History Tobacco Use Types Packs/Day Years Used Date Smoking Tobacco: Former Cigarettes 1 23.1 0 01/10/1985 - 03/03/2008 Smokeless Tobacco: Never Alcohol Use Standard Drinks/Week Comments Yes 3 [...] high school, GED, job training, learning the Eritrean language, technical skills, or developing parenting skills)? [...] housing situation today? 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 Wish to be (Past 1 Month) No 025 4:00 PM Corie Kimball RN 2. Non-Specific Active Suici clara Thoughts (Past 1 Month) No 09/01/2024 4:00 PM EDT Rocío Sabillon ea, RN 6. Suicidal Behavior (Lifetime) No 4:00 PM EDT Corie Sabillon RN documented as of this encounter Plan of Treatment Upcoming Encounters Date Type Department Care Team (Late st Contact Info) Description 06/01/2025 11:30 AM EST Office Visit [facility] [address] [place] [address] Sergio Dyer DO [address] [address] [email or web address] documented as of this encounter Visit Diagnoses Not on filedocumented in this encounter Additional Health Concerns Assessment Noted Time PHQ-9 Depression Total Score: 14 021 4:03 PM EST PHQ-2 Depression Total Score: 2 05/26/19 25 10:56 AM EST documented as of this encounter Care Teams Porcelain Buildup Assistant Relationship Specialty Start Date End Date Sergio Dyer DO [address] [address] [email or web address] PCP - General Family Medicine 08/21/19 documented as of this encounter Additional Source Comments The information contained in this document represents components of the legal health record. It is not the complete legal health record.[facility]
== END 2025-01-27 09:57 | disposition home or self-care (01) ==
LOC: HO.HUSH 08:41
PROVIDERS: PCP Family Medicine; Visit Provider Urology
DX: C67.9 Malignant neoplasm of bladder, unspecified (principal); Z13.9 Encounter for screening, unspecified
CPT/HCPCS: 52000

== ENCOUNTER → 2025-01-27 08:40 | Outpatient (BNVA) | payer OTHER, SELFPAY | PROVIDERS: PCP Family Medicine; Visit Provider Urology | DX: C67.9 Malignant neoplasm of bladder, unspecified (principal) | CPT/HCPCS: 52000; 81003 ==